=== PATIENT | male | born 1995 | race Caucasian/White ===

== ENCOUNTER 2017-08-15 14:46 | Emergency (ER) | payer MEDICAID ==
[~2017-08-15] VITALS: Ht 177.8 cm; Wt 70.0 kg
[2017-08-15] MEDS ORDERED: LORAZEPAM 2MG/ML CPJ IV ONE ×2 (15:15→16:30)
[2017-08-15] MEDS ORDERED: LORAZEPAM 0.5MG TABLET PO ONE (16:00)
[2017-08-15 16:08] LABS: EOSINOPHILS % 3.5 % (0.0-5.0); LYMPHOCYTES % 35.3 % (20.0-50.0); MEAN CORPUSCULAR HEMOGLOBIN 30.4 pg (28.0-32.0); MEAN CORPUSCULAR VOLUME 87.2 fL (80.0-94.0); MEAN PLATELET VOLUME 8.6 fl (7.4-10.4); MONOCYTES % 6.6 % (2.0-8.0); NEUTROPHILS % 53.6 % (40.0-76.0); PLATELET 195 x1000/uL (130-400); RED BLOOD CELL COUNT 5.27 mill/uL (4.7-6.1); RED CELL DISTRIBUTION WIDTH 12.8 % (11.6-14.6)
[2017-08-15 16:13] LABS: CHLORIDE 108 mEq/L (98-107)
[2017-08-15 16:14] LABS: PROTHROMBIN TIME 10.4 sec (9.4-11.6)
[2017-08-15 16:32] LABS: BG BASE EXCESS 2.4 mmol/L (-2.0-2.0); BG CARBOXYHEMOGLOBIN 0.3 % (0.5-1.5); BG DEOXYHEMOGLOBIN 1.1 % (0.0-5.0); BG FRACTION INSPIRED OXYGEN 21; BG HCO3 ACT 23.1 mmol/L (22.0-26.0); BG METHEMOGLOBIN 0.3 % (0.0-1.5); BG OXYGEN SATURATION 98.9 % (92.0-98.5); BG OXYHEMOGLOBIN 98.3 % (94.0-97.0); BG PCO2 26.9 mmHg (35.0-45.0); BG PH 7.552 (7.350-7.450); BG PO2 124.5 mmHg (75.0-100.0); BG SAMPLE SITE RIGHT RADIAL; BG TOTAL HEMOGLOBIN 16.5 g/dL (12.0-18.0); BG VENT MODE ROOM AIR
[2017-08-15 17:50] VITALS: BP 131/84
== END 2017-08-15 17:58 | disposition home or self-care (01) ==
LOC: ER 16:09
DX: F95.9 Tic disorder, unspecified (principal); F12.10 Cannabis abuse, uncomplicated
CPT/HCPCS: 36415; 36600; 71045; 80053; 82375; 82805; 85025; 85610; 96374; 99285; J2060; Z7610